=== PATIENT | male | born 1985 | race Caucasian/White ===

== ENCOUNTER 2021-11-25 06:52 | Observation (INO) | payer OTHER ==
[~2021-11-25] VITALS: Ht 180.3 cm; Wt 154.0 kg
[2021-11-25] VITALS (12 sets, daily range): BP systolic 116–165; BP diastolic 47–105
--- NOTE | 2021-11-25 07:16 | NUR ---
PATIENT ROOMED IN NAD. EKG PERFORMED AND CONNECTED TO MONITOR. PROVIDER NOTIFIED OF PATIENT STATUS.
[2021-11-25 07:42] LABS: HEMATOCRIT 46.7 % (39.0-50.0); HEMOGLOBIN 15.6 g/dl (14.0-18.0); IMMATURE GRANULOCYTES 0.4 % (0.0-5.0); MEAN CELL VOLUME 89.8 fL CALC (80.0-100.0); MEAN CORPUSCULAR HGB CONC 33.4 g/dL CAL (32.0-36.0); NEUT# 17.31 thou/uL (1.82-7.42); RED BLOOD COUNT 5.2 mill/uL (4.70-6.10); RED CELL DISTRI WIDTH 12.4 % (11.5-15.5)
[2021-11-25 07:57] LABS: ALBUMIN 4.4 g/dL (3.2-5.0); ALKALINE PHOSPHATASE 87 u/l (38-126); AMYLASE 58 u/l (30-110); ANION GAP 15 (6-22 (CALC)); BILIRUBIN, TOTAL 0.5 mg/dL (0.0-1.4); BUN 13 mg/dL (9-20); BUN/CREATININE RATIO 15 (12-20 (CALC)); CHLORIDE 104 mmol/l (95-108); CREATININE 0.9 mg/dL (0.7-1.3); GFR > 60 ML/MIN (>=60 (CALC)); GFR FOR AFR.AMER. > 60 ML/MIN (>=60 (CALC)); LIPASE 41 u/l (23-300); POTASSIUM 4.1 mmol/l (3.5-5.1); SGOT/AST 21 u/l (17-59); SODIUM 138 mmol/l (137-146); TOTAL PROTEIN 8.2 g/dL (6.3-8.2)
[2021-11-25 08:02] LABS: CARBON DIOXIDE 23 mmol/l (22-30)
[2021-11-25 08:09] LABS: MYOGLOBIN 31 ng/mL (0 - 121)
--- NOTE | 2021-11-25 08:10 | NUR ---
Reassessment of patient completed. No distress noted.
[2021-11-25 08:47] LABS: URINE BILIRUBIN - DIPSTICK NEGATIVE (NEGATIVE); URINE BLOOD DIPSTICK NEGATIVE (NEGATIVE); URINE COLOR YELLOW; URINE GLUCOSE - DIPSTICK NEGATIVE (NEGATIVE); URINE KETONE NEGATIVE (NEGATIVE); URINE LEUK ESTERASE NEGATIVE (NEGATIVE); URINE PROTEIN - DIPSTICK TRACE mg/dL (NEG-TRACE); URINE SPECIFIC GRAVITY 1.015; URINE UROBILINOGEN - DIPSTICK 0.2 E.U./dL (0.2)
[2021-11-25 08:49] LABS: URINE NITRITE - DIPSTICK NEGATIVE (Negative)
--- NOTE | 2021-11-25 09:25 | NUR ---
Reassessment of patient completed. No distress noted.
--- NOTE | 2021-11-25 10:30 | NUR ---
Reassessment of patient completed. No distress noted.
--- NOTE | 2021-11-25 11:30 | NUR ---
Reassessment of patient completed. No distress noted.
--- NOTE | 2021-11-25 12:11 | NUR ---
Reassessment of patient completed. No distress noted.
--- NOTE | 2021-11-25 12:18 | NUR ---
RECEIVE REPORT AND PATIENT FROM ER CARMEN NURSE. PATIENT ALERT AND ORIENTED X3. REFER ABDOMINAL PAIN SCALE ON 5 AT THIS TIME. PATIENT IS EDUCATED ABOUD MEDICATIONS, ADMISSION AND NURSING PLAN. PATIENT REFER UNDERSTAND.
[2021-11-25 14:36] LABS: HEMATOCRIT 48.8 % (39.0-50.0); HEMOGLOBIN 15.4 g/dl (14.0-18.0); IMMATURE GRANULOCYTES 0.3 % (0.0-5.0); MEAN CELL VOLUME 95.1 fL CALC (80.0-100.0); MEAN CORPUSCULAR HGB CONC 31.6 g/dL CAL (32.0-36.0); NEUT# 18.64 thou/uL (1.82-7.42); RED BLOOD COUNT 5.13 mill/uL (4.70-6.10); RED CELL DISTRI WIDTH 12.8 % (11.5-15.5)
--- NOTE | 2021-11-25 19:45 | NUR ---
PT IN BED; A&O X3. EVEN AND UNLABORED RESPIRATIONS; CLEAR LUNG SOUNDS UPON AUSCULTATION. HYPOACTIVE BOWEL SOUNDS X4 QUADRANTS. TELEMETRY IN PLACE. IV SITE HEALTHY AND PATENT. SKIN IS INTACT. PT ASSISTED TO BATHROOM. PT BACK IN BED. SAFETY PRECAUTIONS IN PLACE WITH CALL LIGHT IN REACH.
[2021-11-26] VITALS (7 sets, daily range): BP systolic 95–122; BP diastolic 43–70
--- NOTE | 2021-11-26 00:30 | NUR ---
PT IN BED. IV BOLUS GIVEN PER EMAR. NO DISTRESS NOTED. PT DENIES PAIN AT THE MOMENT. TELEMETRY IN PLACE WITH LAST READING SR-85 WITH PAC. SAFETY PRECAUTIONS IN PLACE WITH CALL LIGHT IN REACH.
--- NOTE | 2021-11-26 04:06 | NUR ---
PT C/O ABDOMINAL PAIN LEVEL 5/10; ADMINISTERED PAIN MEDICATION PER EMAR. NEW BAG OF IVF HANGING. TELEMETRY AND SAFETY PRECAUTIONS IN PLACE. CALL LIGHT IN REACH.
[2021-11-26 05:47] LABS: HEMATOCRIT 44.6 % (39.0-50.0); HEMOGLOBIN 14.6 g/dl (14.0-18.0); IMMATURE GRANULOCYTES 0.8 % (0.0-5.0); MEAN CELL VOLUME 92.7 fL CALC (80.0-100.0); MEAN CORPUSCULAR HGB 30.4 pG CALC (26.0-32.0); MEAN CORPUSCULAR HGB CONC 32.7 g/dL CAL (32.0-36.0); NEUT# 15.72 thou/uL (1.82-7.42); RED BLOOD COUNT 4.81 mill/uL (4.70-6.10); RED CELL DISTRI WIDTH 12.8 % (11.5-15.5)
[2021-11-26 06:27] LABS: ALBUMIN 3.9 g/dL (3.2-5.0); ALKALINE PHOSPHATASE 76 u/l (38-126); ANION GAP 15 (6-22 (CALC)); BUN 10 mg/dL (9-20); BUN/CREATININE RATIO 13 (12-20 (CALC)); CALCULATED LDLCHOLESTEROL 100 mg/dL (62-129 (CALC)); CARBON DIOXIDE 25 mmol/l (22-30); CHLORIDE 101 mmol/l (95-108); CHOLESTEROL HDL RATIO 3.4 (<4.4 (CALC)); CREATININE 0.8 mg/dL (0.7-1.3); GFR > 60 ML/MIN (>=60 (CALC)); GFR FOR AFR.AMER. > 60 ML/MIN (>=60 (CALC)); HDL CHOLESTEROL 47 mg/dL (>=40); MAGNESIUM 2.3 mg/dL (1.6-2.3); POTASSIUM 4.4 mmol/l (3.5-5.1); SGOT/AST 29 u/l (17-59); SODIUM 137 mmol/l (137-146); TOTAL CHOLESTEROL 158 mg/dl (0-199); TOTAL PROTEIN 6.8 g/dL (6.3-8.2); TOTAL TRIGLYCERIDES 56 mg/dl (30-149); VLDL CHOLESTROL 11 mg/dl (5-56 (CALC))
[2021-11-26 06:34] LABS: BILIRUBIN, TOTAL 1.1 mg/dL (0.0-1.4)
--- NOTE | 2021-11-26 10:58 | NUR ---
PT SEEN AWAKE, ALERT, ORIENTED X 3. LUNGS CLEAR, RA. ABDOMEN SOFT, DISTENDED, PT COMPLAINS OF GENERALIZED PAIN TO ABDOMEN, MED GIVEN. PT STATES FEVER THROUGH THE NIGHT, IMPROVED NOW. PT MADE AWARE OF DR KRAUSE CONSULT. AT BEDSIDE, SUPPORTIVE.
--- NOTE | 2021-11-26 12:55 | NUR ---
PT FOR ABDOMINAL U/S THIS AFTERNOON, NPO. PAIN MED PROVIDED EARLIER.
--- NOTE | 2021-11-26 16:41 | NUR ---
PT TO U/S, WAITING RESULTS. AT BEDSIDE. NO DISTRESS, NO COMPLAINTS.
--- NOTE | 2021-11-26 21:00 | NUR ---
PT IS RESTING IN BED WATCHING TV. BED IS IN LOWEST POSITION AND CALL LIGHT IS WITHIN REACH. WILL CONTINUE HOURLY ROUNDING.
--- NOTE | 2021-11-26 21:30 | NUR ---
COMPLETED ASSESSMENT AT THIS TIME. PT IS A&O X3, ON RA, IS AMBULATORY, AND HAS A 20G IN RAC. PT HAS NO SKIN ISSUES AND IS NOT C/O ANYTHING AT THIS TIME. WILL CONTINUE HOURLY ROUNDING.
--- NOTE | 2021-11-26 23:00 | NUR ---
PT IS UP TO THE BATHROOM AND DOES NOT NEED ASSISTANCE AT THIS TIME. WILL CONTINUE HORLY ROUNDING.
--- NOTE | 2021-11-27 01:00 | NUR ---
PT IS SLEEPING AT THIS TIME. BED IS IN LOWEST POSITION AND CALL LIGHT IS WITHIN REACH. WILL CONTINUE HOURLY ROUNDING.
[2021-11-27 03:55] VITALS: BP 106/61
[2021-11-27 06:07] LABS: HEMOGLOBIN 12.8 g/dl (14.0-18.0); IMMATURE GRANULOCYTES 0.4 % (0.0-5.0); MEAN CELL VOLUME 90.5 fL CALC (80.0-100.0); MEAN CORPUSCULAR HGB 30.3 pG CALC (26.0-32.0); MEAN CORPUSCULAR HGB CONC 33.5 g/dL CAL (32.0-36.0); NEUT# 11.56 thou/uL (1.82-7.42); RED BLOOD COUNT 4.22 mill/uL (4.70-6.10); RED CELL DISTRI WIDTH 12.7 % (11.5-15.5)
[2021-11-27 06:19] LABS: HEMATOCRIT 38.2 % (39.0-50.0)
[2021-11-27 06:22] LABS: ANION GAP 13 (6-22 (CALC)); BUN 8 mg/dL (9-20); BUN/CREATININE RATIO 12 (12-20 (CALC)); CARBON DIOXIDE 26 mmol/l (22-30); CHLORIDE 101 mmol/l (95-108); CREATININE 0.7 mg/dL (0.7-1.3); GFR > 60 ML/MIN (>=60 (CALC)); GFR FOR AFR.AMER. > 60 ML/MIN (>=60 (CALC)); MAGNESIUM 2.1 mg/dL (1.6-2.3); SODIUM 136 mmol/l (137-146)
--- NOTE | 2021-11-27 07:00 | NUR ---
RECEIVE REPORT FROM HARJEET BURKETT.
[2021-11-27 07:50] VITALS: BP 106/61
--- NOTE | 2021-11-27 08:00 | NUR ---
PATIENT ALERT AND ORIENTED X3. NO PAIN, NO RESPIRATORY DISTRESS. PATIENT IS EDUCATED ABOUD MEDICATIONS AND NURSING PLAN FOR TODAY. PATIENT REFER UNDERSTAND.PATIENT WITH PLAN FOR DISCHARGED AT HOME TODAY.
[2021-11-27 11:14] VITALS: BP 143/85
--- NOTE | 2021-11-27 11:54 | NUR ---
PATIENT IS DISCHARGED STABLE AT THIS TIME.
[2021-11-28] MEDS ORDERED: OMEPRAZOLE20 MG PO (11:27)
== END 2021-11-27 12:00 | disposition home or self-care (01) | DRG 815 ==
LOC: ED 06:52 → ED-I 10:00 → ED 10:21 → MS2 10:22
PROVIDERS: Emergency Medicine; Nurse Practitioner; ADMIT Internal Medicine; ATTEND Internal Medicine
DX: D72.829 Elevated white blood cell count, unspecified (principal); K82.8 Other specified diseases of gallbladder; K21.9 Gastro-esophageal reflux disease without esophagitis; R79.89 Other specified abnormal findings of blood chemistry; E66.01 Morbid (severe) obesity due to excess calories; Z68.42 Body mass index [BMI] 45.0-49.9, adult; Z20.822 Contact with and (suspected) exposure to COVID-19
CPT/HCPCS: G0378; J1650; Q3014; Q9967; S0164